=== PATIENT | female | born 1950 | race African-American/Black ===

== ENCOUNTER 2021-07-05 18:32 | Emergency (ER) | payer OTHER ==
[~2021-07-05] VITALS: Ht 162.6 cm; Wt 76.0 kg
[2021-07-05] MEDS ORDERED: IOHEXOL-350 100 ML BOTTLE ONE (19:50)
[2021-07-05 19:57] LABS: BASOPHILS % 1.3 % (0.0-2.0); EOSINOPHILS % 4.7 % (0.0-5.0); HEMATOCRIT. 34.6 % (36.0-48.0); HEMOGLOBIN. 11.5 g/dL (12.0-16.0); LYMPHOCYTES % 32.5 % (20.0-50.0); MEAN CORPUSCULAR HEMOGLOBIN 28.2 pg (28.0-32.0); MEAN CORPUSCULAR VOLUME 84.9 fL (81.0-99.0); MEAN PLATELET VOLUME 8.2 fl (7.4-10.4); MONOCYTES % 8.8 % (2.0-8.0); NEUTROPHILS % 52.7 % (40.0-76.0); PLATELET 234 x1000/uL (130-400); RED BLOOD CELL COUNT 4.08 mill/uL (4.2-5.4)
[2021-07-05 20:06] LABS: CHLORIDE 104 mEq/L (98-107)
[2021-07-05 20:13] LABS: ETHANOL BLOOD < 10 mg/dL
[2021-07-05 20:26] LABS: CLARITY URINE CLEAR (CLEAR); COLOR URINE YELLOW (YELLOW); KETONES URINE NEGATIVE (NEGATIVE); LEUKOCYTE ESTERASE URINE NEGATIVE (NEGATIVE); NITRITE URINE NEGATIVE (NEGATIVE); OCCULT BLOOD URINE NEGATIVE (NEGATIVE); PROTEIN URINE NEGATIVE (NEGATIVE); SPECIFIC GRAVITY URINE 1.048 (1.005-1.030)
[2021-07-05 20:37] LABS: *COCAINE SCREEN URINE NEGATIVE (NEGATIVE); METHADONE URINE SCREEN NEGATIVE (NEGATIVE); OPIATES URINE SCREEN NEGATIVE (NEGATIVE); PHENCYCLIDINE URINE SCREEN NEGATIVE (NEGATIVE)
[2021-07-05 20:38] LABS: *AMPHETAMINES SCREEN URINE NEGATIVE (NEGATIVE); *BARBITURATES SCREEN URINE NEGATIVE (NEGATIVE); *BENZODIAZEPINES SCREEN URINE NEGATIVE (NEGATIVE); CANNABINOID URINE SCREEN NEGATIVE (NEGATIVE)
[2021-07-05] MEDS ORDERED: ASPIRIN 325MG EC TABLET PO ONE (21:15)
[2021-07-06 00:32] VITALS: BP 177/80
== END 2021-07-06 01:05 | disposition short-term general hospital (02) ==
LOC: ER 18:32 → CANBEDREQ 07-06 04:19
DX: R53.1 Weakness (principal); I70.8 Atherosclerosis of other arteries; Z20.822 Contact with and (suspected) exposure to COVID-19; I10 Essential (primary) hypertension; E11.9 Type 2 diabetes mellitus without complications
CPT/HCPCS: 36415; 70450; 70496; 70498; 71045; 80053; 80305; 80320; 81003; 82962; 84484; 85025; 87426; 93005; 99291; Q9967; G0480